=== PATIENT | female | born 1975 | race Caucasian/White ===

== ENCOUNTER → 2016-10-11 | Outpatient (CLI) | payer BC ==
[~2016-10-11] MED LIST: CONTRAST GIVEN MC PRN; IOHEXOL 300 MG/ML 75 ML VIAL IV ONE
--- NOTE | 2016-10-11 10:36 | RAD ---
CTA of the head and neck with contrast, 10/11/2016: History: Loss of consciousness, syncope Multidetector CT imaging was performed following an IV bolus injection of iodinated contrast material. Multiplanar reconstructions were produced as well as 3-D volume rendered reconstructions of the major arteries. Limited noncontrast scans were also obtained for subtraction purposes. Both common carotid arteries in the neck are widely patent. No significant narrowing is evident at the carotid bifurcations. The distal internal carotid arteries are widely patent up through the level of the [place]. The A1 segment of the left anterior cerebral artery is hypoplastic with the majority of the anterior cerebral circulation on both sides provided from the right. The anterior cerebral arteries and their major branches are otherwise unremarkable. The middle cerebral arteries and their major branches show no abnormality on either side. No aneurysm is evident. Both vertebral arteries in the neck are widely patent up through the basilar artery level. The basilar artery shows no abnormality. The posterior cerebral arteries and their major branches are unremarkable. IMPRESSION: 1. No significant narrowing at either carotid bifurcation. 2. Hypoplastic A1 segment of the left anterior cerebral artery. 3. The intracranial circulation is otherwise unremarkable.
== END | disposition home or self-care (01) ==
LOC: CT 15:39
PROVIDERS: ATTEND Nurse Practitioner Adult Health
DX: R55 Syncope and collapse (principal)
CPT/HCPCS: 70496; 70498; Q9967

== ENCOUNTER → 2017-07-29 | Outpatient (CLI) | payer OTHER | END | disposition home or self-care (01) | LOC: KCIC CT 15:51 | DX: S89.92XD Unspecified injury of left lower leg, subsequent encounter (principal); X58.XXXD Exposure to other specified factors, subsequent encounter | CPT/HCPCS: 73700 ==

== ENCOUNTER 2019-01-20 16:02 | Emergency (ER) | payer OTHER, MEDICARE ==
[~2019-01-20] VITALS: Ht 165.1 cm; Wt 79.4 kg
--- NOTE | 2019-01-20 16:11 | PHYS DOC ---
Adult General Chief Complaint Chief Complaint: HAND PROBLEM HPI HPI Patient is a 43 year old female with history of seizures who presents to the ED today complaining of 7 out of 10 throbbing left hand pain with bruising that she noted after having a seizure today. Patient states she does not want to be evaluated for her seizures because the chronic. Patient states the pain is worse on touching the dorsal aspect of the left hand. Patient states the pain is intermittent. She states she took [place] with slight relief Review of Systems Review of Systems Constitutional: Denies fever or chills [] Musculoskeletal: Left hand pain Integument: Denies rash or skin lesions [] Neurologic: Denies headache, focal weakness or sensory changes [] All other systems were reviewed and found to be within normal limits, except as documented in this note. Current Medications Current Medications Current Medications Medications (Trade) Dose Ordered Sig/Jhony Start Time Stop Time Status Last Admin Dose Admin Acetaminophen/ Hydrocodone Bitart (Lortab 5/325) 1 tab 1X ONCE 01/20/19 17:15 01/20/19 17:16 DC 01/20/19 17:16 1 TAB Naproxen (Naprosyn) 500 mg 1X STAT 01/20/19 17:01 01/20/19 17:04 DC 01/20/19 17:15 500 MG Allergies Allergies Allergies Coded Allergies Type Severity Reaction Last Updated Verified No Known Drug Allergies 10/11/16 No Physical Exam Physical Exam Constitutional: Well developed, well nourished, no acute distress, non-toxic appearance. [] ] Extremities: Left hand with bruising on the dorsal aspect. No tenderness on palpation of the left dorsal hand. Full range of motion to the left hand and fingers, adequate radial, medial, ulnar sensation to the left hand and fingers. +2 left radial pulse. Cap refill less than 2 seconds. Neurologic: Alert and oriented X 3, normal motor function, normal sensory function, no focal deficits noted. [] Psychologic: Affect normal, judgement normal, mood normal. [] Current Patient Data Vital Signs Vital Signs Date Time Temp Pulse Resp B/P (MAP) Pulse Ox O2 Delivery O2 Flow Rate FiO2 01/20/19 17:16 15 96 Room Air 01/20/19 17:01 98.7 100 120/88 (99) 98.7 EKG EKG [] Radiology/Procedures Radiology/Procedures []PROCEDURE: HAND LEFT 3V Examination: HAND LEFT 3V History: Pain, fell during seizure Comparison/Correlation: None Findings: Total 3 images of the left hand were obtained. Osteopenia noted. Joint spaces are unremarkable. No acute fracture or bony destruction. Subtle lucencies involving the dorsal soft tissues at the proximal metacarpal level on the lateral view noted. Soft tissue gas about the second and fifth digits proximally noted extending to the metacarpal head levels. Impression: Soft tissue gas. Correlate with underlying laceration or other trauma history. Infectious etiology is not excluded. No displaced fracture. Electronically signed by: Chance Marvin MD (01/20/2019 5:08 PM) [facility] DICTATED and SIGNED BY: CHANCE MARVIN MD DATE: 01/20/191707 Course & Med Decision Making Course & Med Decision Making Pertinent Labs and Imaging studies reviewed. (See chart for details) This is a 43-year-old female patient presenting to the ED today with left hand pain that began after having a seizure today. She believes she fell on the left hand. She does not want to be evaluated for her chronic seizures. Right hand x-rays interpreted by radiologist were negative for any cute fracture, noted for soft tissue gas patient has bruising on the backside of the hand from this fall. There is no laceration. Saeed bandage applied to the left hand by me, neurovascular exam is intact. Ice elevation encouraged. Follow-up with orthopedic doctor. Zandra Disclaimer Dragon Disclaimer This electronic medical record was generated, in whole or in part, using a voice recognition dictation system. Departure Departure Impression: Primary Impression: Fall from standing Additional Impressions: Contusion of left hand Seizure Disposition: HOME, SELF-CARE Condition: STABLE Referrals: ANDRIY HURTADO (PCP) VIJAY JASSO II, MD follow up in 1-2 weeks Patient Instructions: Contusion, [id number], Seizure, Adult Additional Instructions: You were seen for left hand contusion. Try to ice and elevate the extremity. Continue taking your hydrocodone as needed for pain. You can also take ibuprofen. Follow-up with the provided orthopedic doctor in one week. Problem Qualifiers Primary Impression: Fall from standing Encounter type: initial encounter Qualified Codes: W19.XXXA - Unspecified fall, initial encounter Additional Impressions: Contusion of left hand Encounter type: initial encounter Qualified Codes: S60.222A - Contusion of left hand, initial encounter TENZIN [employer] Jan 20, 2019 16:11
[2019-01-20 17:01] VITALS: BP 120/88
[2019-01-20] MEDS ORDERED: NAPROXEN 500 MG TABLET PO STA (17:01)
--- NOTE | 2019-01-20 17:11 | RAD ---
Examination: HAND LEFT 3V History: Pain, fell during seizure Comparison/Correlation: None Findings: Total 3 images of the left hand were obtained. Osteopenia noted. Joint spaces are unremarkable. No acute fracture or bony destruction. Subtle lucencies involving the dorsal soft tissues at the proximal metacarpal level on the lateral view noted. Soft tissue gas about the second and fifth digits proximally noted extending to the metacarpal head levels. Impression: Soft tissue gas. Correlate with underlying laceration or other trauma history. Infectious etiology is not excluded. No displaced fracture. Electronically signed by: Chance Segundo MD (01/20/2019 5:08 PM) [facility]
[2019-01-20] MEDS ORDERED: HYDROcodone/APAP 5/325MG 1 TAB TABLET PO ONE (17:15)
== END 2019-01-20 17:37 | disposition home or self-care (01) ==
LOC: ER 16:02
DX: S60.222A Contusion of left hand, initial encounter (principal); R56.9 Unspecified convulsions; W18.39XA Other fall on same level, initial encounter; Y93.89 Activity, other specified; Y92.89 Other specified places as the place of occurrence of the external cause; Y99.8 Other external cause status
CPT/HCPCS: 73130; 99284